=== PATIENT | female | born 1985 | race Caucasian/White ===

== ENCOUNTER 2017-05-29 07:25 | Inpatient (IN) | payer BC ==
[2017-05-29] MEDS ORDERED: SODIUM CHLORIDE 0.9% 1000 ML INFUS.BAG IV ONE ×2 (07:28→12:27)
[2017-05-29] MEDS ORDERED: morphine CARPU-JECT 4 MG/1 ML DISP.SYRIN IVPUSH ONE (07:28)
[2017-05-29] MEDS ORDERED: morphine CARPU-JECT 4 MG/1 ML DISP.SYRIN ONE (07:39)
[2017-05-29 07:44] LABS: URINE APPEARANCE Clear; URINE BILIRUBIN Negative (NEGATIVE); URINE BLOOD Trace-intact (NEGATIVE); URINE COLOR YELLOW; URINE GLUCOSE (UA) Negative (NEGATIVE); URINE KETONE Negative (NEGATIVE); URINE LEUK ESTERASE Negative (NEGATIVE); URINE NITRITE Negative (NEGATIVE); URINE PROTEIN Negative (NEGATIVE); URINE UROBILINOGEN 0.2 (0.2-1.0)
[2017-05-29 07:45] LABS: URINE BACTERIA FEW /hpf (NEGATIVE); URINE RBC 0-3 /hpf (0-3); URINE WBC 0-3 (3-5)
--- NOTE | 2017-05-29 07:52 | PDOC ---
History of Present Illness - General Chief Complaint: Pain Stated Complaint: RUQ ABD PAIN History Source: Patient Exam Limitations: No Limitations - History of Present Illness Initial Comments: 05/29/17 07:49 32 yo F with no significant medical history here with c/o right sided abd pain. started at 1 am. sharp colicky severe like " labor pains" does have nausea with pain, no vomiting. no f/c no urinary complaints. not LMP 1 week ago. pain worse with lying flat and walking, better wtih sitting hunched over. Past History - Past Medical History Allergies/Adverse Reactions: Allergies Allergy/AdvReac Type Severity Reaction Status Date / Time No Known Allergies Allergy Verified 05/29/17 07:26 Home Medications: Ambulatory Orders Bismuth Subsalicylate [Pepto-Bismol -] 60 ml PO ONCE PRN 05/29/17 Citalopram Hydrobromide [Celexa -] 30 mg PO DAILY 05/29/17 Clonazepam [KlonoPIN] 0.5 mg PO PRN PRN 05/29/17 GI Disorders: Yes (ULCERS) Psychiatric Problems: Yes (ANXIETY) - Surgical History Abdominal Surgery: Yes (GASTRIC BYPASS) - Reproductive History Is Patient Now?: (DENIES) - Suicide/Smoking/Psychosocial Hx Smoking History: Never smoked Have you smoked in the past 12 months: No Information on smoking cessation initiated: No Hx Alcohol Use: No Drug/Substance Use Hx: No Substance Use Type: None Review of Systems - Review of Systems Constitutional: No: Chills, Diaphoresis Respiratory: No: Cough Cardiac (ROS): No: Chest Pain ABD/GI: Yes: Nausea, Other (abd pain). No: Diarrhea, Vomiting : No: Burning, Dysuria Musculoskeletal: No: Back Pain Integumentary: No: Bruising All Other Systems: Reviewed and Negative *Physical Exam - Vital Signs Last Vital Signs Temp Pulse Resp BP Pulse Ox 99.1 F 105 H 20 132/59 100 05/29/17 07:05/29/17 07:05/29/17 07:05/29/17 07:05/29/17 07:26 - Physical Exam General Appearance: Yes: Appropriately Dressed HEENT: positive: Normal ENT Inspection Neck: positive: Trachea midline. negative: Normal Thyroid Respiratory/Chest: positive: Lungs Clear, Normal Breath Sounds. negative: Chest Tender Cardiovascular: positive: Regular Rhythm, Regular Rate, S1, S2. negative: Edema Gastrointestinal/Abdominal: positive: Normal Bowel Sounds, Tender (ruq , right mid quad ttp, positive guarding), Flat, Soft Musculoskeletal: positive: Normal Inspection. negative: CVA Tenderness Extremity: positive: Normal Capillary Refill, Normal Inspection Integumentary: positive: Normal Color, Dry, Warm Neurologic: positive: account executive key accounts II-XII NML intact, Fully Oriented, Alert, Normal Mood/ Affect, Motor Strength 01/04 ED Treatment Course - LABORATORY CBC & Chemistry Diagram: 05/29/17 07:48 05/29/17 07:48 - ADDITIONAL ORDERS Additional order review: Laboratory Results 05/29/17 07:27 Urine Color Yellow Urine Appearance Clear Urine pH 7.0 Ur Specific [place] 1.020 Urine Protein Negative Urine Glucose (UA) Negative Urine Ketones Negative Urine Blood Trace-intact H Urine Nitrite Negative Urine Bilirubin Negative Urine Urobilinogen 0.2 Urine RBC 0-3 Urine WBC 0-3 Ur Epithelial Cells Few Urine Bacteria Few Urine HCG, Qual Negative - RADIOLOGY Radiology Studies Ordered: Category Date Time Status ABDOMEN US -LIMITED [US] Stat Ultrasound 05/29/17 07:31 Ordered Medical Decision Making - Medical Decision Making 05/29/17 07:51 differential: cholelithiaisis, renal colic, free fluid from ruptured ov cyst , appy. plan us gb, if negative ct a/p ua ucg labs pain control 05/29/17 08:32 bedside ultrasound performed RUQ, no stones, no wall thickening or edema. neg mccain's. CBD normal 3 mm. impression: normal gb focused renal ultrasound bilat kidneys, for flank pain bilat kidneys scanned in two planes. no hydroneprhosis. bladder nondistended. impression: normal renal ultrasound 05/29/17 11:[address] a/p with partial sbo, will page [facility]. pagd. awaiting call back *DC/Admit/Observation/Transfer Diagnosis at time of Disposition: Partial small bowel obstruction - Discharge Dispostion Admit: Yes
[2017-05-29] MEDS ORDERED: ONDANSETRON 4 MG/2 ML VIAL ONE ×2 (07:56→13:10)
[2017-05-29 07:57] LABS: MCHC 30.3 g/dl (32.0-36.0); MEAN CELL VOLUME 66.1 fl (80-96); MEAN PLT VOLUME 8.5 fl (7.5-11.1); PLATELET COUNT 393 K/MM3 (134-434); RDW 16.8 % (11.6-15.6); WHITE BLOOD COUNT 10.1 K/mm3 (4.0-10.8)
[2017-05-29] MEDS ORDERED: HYDROmorphone HCL CARPU-JECT 1 MG/1 ML DISP.SYRIN ONE ×2 (07:57→10:31)
[2017-05-29] MEDS ORDERED: HYDROmorphone HCL CARPU-JECT 1 MG/1 ML DISP.SYRIN IVPUSH ONE ×2 (08:00→10:17)
[2017-05-29] MEDS ORDERED: ONDANSETRON 4 MG/2 ML VIAL IVPUSH ONE ×2 (08:01→13:13)
[2017-05-29 08:16] LABS: ANISOCYTOSIS 1+; HYPOCHROMIA 2+; MICROCYTOSIS 2+; PLATELET ESTIMATE ADEQUATE (NORMAL)
[2017-05-29 08:25] LABS: ALBUMIN 4.1 g/dl (3.5-5.0); ALK PHOS 46 U/L (32-92); ANION GAP 5 (8-16); BILIRUBIN,TOTAL 0.8 mg/dl (0.2-1.0); CALCIUM 9.1 mg/dl (8.4-10.2); CO2 24 mmol/L (22-28); CREATININE 0.6 mg/dl (0.6-1.3); GLUCOSE,RANDOM 89 mg/dl (74-106); SGOT/AST 21 U/L (10-42); SGPT/ALT 18 U/L (10-40); TOT PROT 7.9 g/dl (6.4-8.3)
[2017-05-29] MEDS ORDERED: SODIUM CHLORIDE 1,000 ML IV SCH (12:15)
--- NOTE | 2017-05-29 13:11 | HP ---
CHIEF COMPLAINT: abdominal pain PCP: Dr Greer HISTORY OF PRESENT ILLNESS: Patient is a 32 y/o female with a past medical history of iron deficiency anemic, peptic ulcer disease, and gastric bypass (12 years ago). Patient reports at 0100 on this date, she awoke with severe abdominal pain, nausea and vomiting. Patient reports she has experienced similar abdominal pain in the past and symptoms resolved spontenously without any intervention. patient does reports she was admitted to [facility] on 03/18 for severe anemia and received 2 units of prbc. ER course was notable for: (1) ct scan of abd/pelvis: finding consistent with partial sbo (2) hemoglobin 10.1 (3) Recent Travel: none PAST MEDICAL HISTORY: iron deficency anemia, peptic ulcer disease PAST SURGICAL HISTORY: gastric bypass (12 years ago, Dr Quijano) Social History: employed as an OR tech in nursing school, resides at home with and 4 year old child Smoking:none Alcohol:none Drugs: none Family History: none Allergies No Known Allergies Allergy (Verified 05/29/17 07:26) HOME MEDICATIONS: Home Medications Medication Instructions Recorded Bismuth Subsalicylate 60 ml PO ONCE PRN 05/29/17 [Pepto-Bismol -] Citalopram Hydrobromide [Celexa -] 30 mg PO DAILY 05/29/17 Clonazepam [KlonoPIN] 0.5 mg PO PRN PRN 05/29/17 REVIEW OF SYSTEMS CONSTITUTIONAL: Absent: fever, chills, diaphoresis, generalized weakness, malaise, loss of appetite, weight change HEENT: Absent: rhinorrhea, nasal congestion, throat pain, throat swelling, difficulty swallowing, mouth swelling, ear pain, eye pain, visual changes CARDIOVASCULAR: Absent: chest pain, syncope, palpitations, irregular heart rate, lightheadedness , peripheral edema RESPIRATORY: Absent: cough, shortness of breath, dyspnea with exertion, orthopnea, wheezing, stridor, hemoptysis GASTROINTESTINAL: Present: abdominal pain nausea, vomiting Absent: abdominal distension,g, diarrhea, constipation, melena, hematochezia GENITOURINARY: Absent: dysuria, frequency, urgency, hesitancy, hematuria, flank pain, genital pain MUSCULOSKELETAL: Absent: myalgia, arthralgia, joint swelling, back pain, neck pain SKIN: Absent: rash, itching, pallor HEMATOLOGIC/IMMUNOLOGIC: Absent: easy bleeding, easy bruising, lymphadenopathy, frequent infections ENDOCRINE: Absent: unexplained weight gain, unexplained weight loss, heat intolerance, cold intolerance NEUROLOGIC: Absent: headache, focal weakness or paresthesias, dizziness, unsteady gait, seizure, mental status changes, bladder or bowel incontinence PSYCHIATRIC: Absent: anxiety, depression, suicidal or homicidal ideation, hallucinations. PHYSICAL EXAMINATION Vital Signs - 24 hr 05/29/17 05/29/17 05/29/17 07:26 07:52 12:17 Temperature 99.1 F 97.8 F Pulse Rate 105 H Pulse Rate [ 65 Left] Respiratory 20 17 Rate Blood Pressure 132/59 132/59 Blood Pressure 92/43 [Right Arm] O2 Sat by Pulse 100 97 Oximetry (%) 05/29/17 12:54 Temperature Pulse Rate Pulse Rate [ 70 Left] Respiratory 17 Rate Blood Pressure Blood Pressure 103/55 [Right Arm] O2 Sat by Pulse 98 Oximetry (%) GENERAL: obese, Awake, alert, and fully oriented, anxious. HEAD: Normal with no signs of trauma. EYES: Pupils equal, round and reactive to light, extraocular movements intact, sclera anicteric, conjunctiva clear. No lid lag. EARS, NOSE, THROAT: Ears normal, nares patent, oropharynx clear without exudates. Moist mucous membranes. NECK: Normal range of motion, supple without lymphadenopathy, JVD, or masses. LUNGS: Breath sounds equal, clear to auscultation bilaterally. No wheezes, and no crackles. No accessory muscle use. HEART: Regular rate and rhythm, normal S1 and S2 without murmur, rub or gallop. ABDOMEN: Soft, obese, not distended, surgical scars, hypoactive bowel sounds, no guarding, + tenderness to the right upper quadrant, no masses. No hepatomegaly or splenomegaly. MUSCULOSKELETAL: Normal range of motion at all joints. No bony deformities or tenderness. No CVA tenderness. UPPER EXTREMITIES: 2+ pulses, warm, well-perfused. No cyanosis. No clubbing. No peripheral edema. LOWER EXTREMITIES: 2+ pulses, warm, well-perfused. No calf tenderness. No peripheral edema. NEUROLOGICAL: Cranial nerves II-XII intact. Normal speech. Normal gait. PSYCHIATRIC: Cooperative. Good eye contact. Appropriate mood and affect. SKIN: Warm, dry, normal turgor, no rashes or lesions noted, normal capillary refill. Laboratory Results - last 24 hr 05/29/17 05/29/17 05/29/17 07:27 07:48 07:48 WBC 10.1 RBC 5.03 Hgb 10.1 L Hct 33.2 MCV 66.1 L MCH 20.0 L MCHC 30.3 L RDW 16.8 H Plt Count 393 MPV 8.5 Neutrophils % No Result Required. Neutrophils % (Manual) 80 Band Neuts % (Manual) 3 Lymphocytes % No Result Required. Lymphocytes % (Manual) 12 Monocytes % (Manual) 5 Hypochromia 2+ Platelet Estimate Adequate Anisocytosis 1+ Microcytosis 2+ Sodium 135 L Potassium 4.3 Chloride 106 Carbon Dioxide 24 Anion Gap 5 L BUN 17 Creatinine 0.6 Creat Clearance w eGFR > 60 Random Glucose 89 Calcium 9.1 Total Bilirubin 0.8 AST 21 ALT 18 Alkaline Phosphatase 46 Total Protein 7.9 Albumin 4.1 Lipase 43 Urine Color Yellow Urine Appearance Clear Urine pH 7.0 Ur Specific [place] 1.020 Urine Protein Negative Urine Glucose (UA) Negative Urine Ketones Negative Urine Blood Trace-intact H Urine Nitrite Negative Urine Bilirubin Negative Urine Urobilinogen 0.2 Urine RBC 0-3 Urine WBC 0-3 Ur Epithelial Cells Few Urine Bacteria Few Urine HCG, Qual Negative ASSESSMENT/PLAN: F/E/N - IVF, npo - replete lytes prn ppx - oob - scd - protonix - hold ac may require surgical intervention Problem List - Problem (1) Partial small bowel obstruction Assessment/Plan: - ct scan reviewed, keep npo ivf - prn pain medication - Code(s): K56.69 - OTHER INTESTINAL OBSTRUCTION (2) Microcytic anemia Assessment/Plan: - hgb 10.1 unknown baseline, anemia secondary to malabsorbtion vs peptic ulcer disease - repeat hgb in am, pending iron studies and stool guiac, pt does have a history of venofer infusion, was last evaluated by a associate professor computer science last year, last venofer was 3 years ago, patient doesn't take iron supplements Code(s): D50.9 - IRON DEFICIENCY ANEMIA, UNSPECIFIED (3) Depression with anxiety Assessment/Plan: - continue prn klonopin and celexa (home dose) Code(s): F41.8 - OTHER SPECIFIED ANXIETY DISORDERS Visit type - Emergency Visit Emergency Visit: Yes Care time: The patient presented to the Emergency Department on the above date and was hospitalized for further evaluation of their emergent condition. - New Patient This patient is new to me today: Yes Date on this admission: 05/29/17 - Critical Care Critical Care patient: No
[2017-05-29] MEDS ORDERED: clonazePAM 0.5 MG TABLET PO PRN ×2 (13:31→14:01)
[2017-05-29] MEDS ORDERED: D5-NS + 20 MEQ KCL - 1,000 ML IV SCH (13:45)
[2017-05-29] MEDS: PANTOPRAZOLE SODIUM 100 ML IVPB SCH (14:50)
[2017-05-29] MEDS: HYDROmorphone HCL CARPU-JECT 1 MG/1 ML DISP.SYRIN IVPB PRN (16:00)
[2017-05-29 16:54] VITALS: BMI 32.4
[2017-05-29] MEDS ORDERED: FLU VACCINE QUAD 60 MCG/0.5 ML (MDV 17-18) IM ONE (17:22)
--- NOTE | 2017-05-29 19:52 | CONSULT ---
Consult Consult Specialty:: Bariatric Surgery Reason for Consultation:: Bowel obstruction - History of Present Illness Chief Complaint: Abdominal pain History of Present Illness: 32 female s/p [place] en Y Gastric Bypass Presents with abdominal pain Mostly in RLQ No nausea/vomiting No fevers Pain x 1-2 days - History Source History Provided By: Patient, Medical Record Limitations to Obtaining History: No Limitations - Past Medical History ...LMP: 05/25/17 ...: No (DENIES) - Past Surgical History Past Surgical History: Yes: Bariatric Surgery (Gastric Bypass) - Alcohol/Substance Use Hx Alcohol Use: No - Smoking History Smoking history: Never smoked Have you smoked in the past 12 months: No Home Medications - Allergies Allergies/Adverse Reactions: Allergies Allergy/AdvReac Type Severity Reaction Status Date / Time No Known Allergies Allergy Verified 05/29/17 07:26 - Home Medications Home Medications: Ambulatory Orders Bismuth Subsalicylate [Pepto-Bismol -] 60 ml PO ONCE PRN 05/29/17 Citalopram Hydrobromide [Celexa -] 30 mg PO DAILY 05/29/17 Clonazepam [KlonoPIN] 0.5 mg PO PRN PRN 05/29/17 Family Disease History - Family Disease History Family History: Unremarkable Review of Systems - Review of Systems Constitutional: denies: Chills, Fever HENT: reports: No Symptoms Neck: reports: No Symptoms Cardiovascular: denies: Chest Pain Respiratory: denies: Cough Gastrointestinal: reports: Abdominal Pain. denies: Nausea, Vomiting Neurological: denies: Change in LOC Pain Intensity: 4 Physical Exam Vital Signs: Vital Signs Temperature 97.9 F 05/29/17 15:47 Pulse Rate 62 05/29/17 15:47 Respiratory Rate 18 05/29/17 15:47 Blood Pressure 107/59 05/29/17 15:47 O2 Sat by Pulse Oximetry (%) 100 05/29/17 15:47 Constitutional: Yes: Calm Neck: Yes: Supple Cardiovascular: Yes: Regular Rate and Rhythm Respiratory: Yes: CTA Bilaterally Gastrointestinal: Yes: Soft, Tenderness (Mild RLQ tenderness). No: Tenderness, Rebound Neurological: Yes: Alert, Oriented Labs: CBC,CMP WBC 10.1 K/mm3 (4.0-10.8) 05/29/17 07:48 RBC 5.03 M/mm3 (3.60-5.2) 05/29/17 07:48 Hgb 10.1 GM/dl (10.7-15.3) L 05/29/17 07:48 Hct 33.2 % (32.4-45.2) 05/29/17 07:48 MCV 66.1 fl (80-96) L 05/29/17 07:48 MCH 20.0 pg (25.7-33.7) L 05/29/17 07:48 MCHC 30.3 g/dl (32.0-36.0) L 05/29/17 07:48 RDW 16.8 % (11.6-15.6) H 05/29/17 07:48 Plt Count 393 K/MM3 (134-434) 05/29/17 07:48 MPV 8.5 fl (7.5-11.1) 05/29/17 07:48 Neutrophils % No Result Required. 05/29/17 07:48 Neutrophils % (Manual) 80 % (42.8-82.8) 05/29/17 07:48 Band Neuts % (Manual) 3 % (0-10) 05/29/17 07:48 Lymphocytes % No Result Required. 05/29/17 07:48 Lymphocytes % (Manual) 12 % (8-40) 05/29/17 07:48 Monocytes % (Manual) 5 % (3.8-10.2) 05/29/17 07:48 Hypochromia 2+ 05/29/17 07:48 Platelet Estimate Adequate (NORMAL) 05/29/17 07:48 Anisocytosis 1+ 05/29/17 07:48 Microcytosis 2+ 05/29/17 07:48 Retic Count 1.38 % (0.5-1.5) 05/29/17 15:26 Sodium 135 mmol/L (136-145) L 05/29/17 07:48 Potassium 4.3 mmol/L (3.5-5.1) 05/29/17 07:48 Chloride 106 mmol/L (98-107) 05/29/17 07:48 Carbon Dioxide 24 mmol/L (22-28) 05/29/17 07:48 Anion Gap 5 (8-16) L 05/29/17 07:48 BUN 17 mg/dl (7-18) 05/29/17 07:48 Creatinine 0.6 mg/dl (0.6-1.3) 05/29/17 07:48 Creat Clearance w eGFR > 60 (>60) 05/29/17 07:48 Random Glucose 89 mg/dl (74-106) 05/29/17 07:48 Calcium 9.1 mg/dl (8.4-10.2) 05/29/17 07:48 Ferritin 2.685 ng/ml (6.9-282.5) L 05/29/17 15:20 Total Bilirubin 0.8 mg/dl (0.2-1.0) 05/29/17 07:48 AST 21 U/L (10-42) 05/29/17 07:48 ALT 18 U/L (10-40) 05/29/17 07:48 Alkaline Phosphatase 46 U/L (32-92) 05/29/17 07:48 Total Protein 7.9 g/dl (6.4-8.3) 05/29/17 07:48 Albumin 4.1 g/dl (3.5-5.0) 05/29/17 07:48 Lipase 43 U/L (22-51) 05/29/17 07:48 Imaging - Results Cat Scan: Report Reviewed, Image Reviewed Problem List - Problems (1) Partial small bowel obstruction Code(s): K56.69 - OTHER INTESTINAL OBSTRUCTION Assessment/Plan 32 female with partial small bowel obstruction Thickening near ileum on CT NPO IV fluids NG tube if develops worsening pain, distention or vomiting Serial abdominal exams and AXRs
[2017-05-30] MEDS: HYDROmorphone HCL CARPU-JECT 1 MG/1 ML DISP.SYRIN IVPB PRN ×3 (02:15→19:53)
[2017-05-30 08:07] LABS: SERUM IRON 17 ug/dL (27-159); TOTAL IRON BINDING CAPACITY 493 ug/dL (250-450); UIBC 476 ug/dL (131-425)
[2017-05-30] MEDS: ONDANSETRON 4 MG/2 ML VIAL IVPUSH PRN ×2 (08:08→18:12)
[2017-05-30 08:39] LABS: BASOPHIL 0.5 % (0-2.0); EOSINOPHIL 1.6 % (0-4.5); MCH 20.2 pg (25.7-33.7); MCHC 30.4 g/dl (32.0-36.0); MEAN CELL VOLUME 66.4 fl (80-96); MEAN PLT VOLUME 8.5 fl (7.5-11.1); NEUTROPHILS 59.8 % (42.8-82.8); PLATELET COUNT 260 K/MM3 (134-434); RDW 16.9 % (11.6-15.6); WHITE BLOOD COUNT 4.1 K/mm3 (4.0-10.8)
[2017-05-30 08:50] LABS: ALK PHOS 35 U/L (32-92); ANION GAP 3 (8-16); BILIRUBIN,TOTAL 0.5 mg/dl (0.2-1.0); CALCIUM 7.8 mg/dl (8.4-10.2); CO2 25 mmol/L (22-28); CREATININE 0.5 mg/dl (0.6-1.3); GLUCOSE,RANDOM 100 mg/dl (74-106); MAGNESIUM 1.7 mg/dL (1.8-2.4); PHOSPHOROUS 2.7 mg/dl (2.5-4.6); SGOT/AST 15 U/L (10-42); SGPT/ALT 13 U/L (10-40); TOT PROT 5.6 g/dl (6.4-8.3)
[2017-05-30] MEDS: PANTOPRAZOLE SODIUM 100 ML IVPB SCH (09:52)
[2017-05-30] MEDS: CITALOPRAM HYDROBROMIDE 20 MG TABLET (FP) PO SCH (09:52)
--- NOTE | 2017-05-30 10:14 | PN ---
Physical Exam: SUBJECTIVE: Patient seen and examined, reports abdominal cramping, denies any nausea. OBJECTIVE:Patient is a 32 y/o female with a past medical history of iron deficiency anemic, peptic ulcer disease, and gastric bypass (12 years ago). patient was admitted from the emergency department for partial sbo Vital Signs Period Temp Pulse Resp BP Sys/Reyna Pulse Ox Last 24 Hr 97.9 F-98.8 F 60-74 17-19 96-109/42-59 97-100 GENERAL: The patient is awake, alert, and fully oriented, in no acute distress. HEAD: Normal with no signs of trauma. EYES: PERRL, extraocular movements intact, sclera anicteric, conjunctiva clear. No ptosis. ENT: Ears normal, nares patent, oropharynx clear without exudates, moist mucous membranes. NECK: Trachea midline, full range of motion, supple. LUNGS: Breath sounds equal, clear to auscultation bilaterally, no wheezes, no crackles, no accessory muscle use. HEART: Regular rate and rhythm, S1, S2 without murmur, rub or gallop. ABDOMEN: Soft, nontender, nondistended, normoactive bowel sounds, no guarding, no rebound, no hepatosplenomegaly, no masses. EXTREMITIES: 2+ pulses, warm, well-perfused, no edema. NEUROLOGICAL: Cranial nerves II through XII grossly intact. Normal speech, gait not observed. PSYCH: Normal mood, normal affect. SKIN: Warm, dry, normal turgor, no rashes or lesions noted Laboratory Results - last 24 hr 05/29/17 05/29/17 05/29/17 15:20 15:20 15:20 WBC RBC Hgb Hct MCV MCH MCHC RDW Plt Count MPV Neutrophils % Lymphocytes % Monocytes % Eosinophils % Basophils % Retic Count Sodium Potassium Chloride Carbon Dioxide Anion Gap BUN Creatinine Creat Clearance w eGFR Random Glucose Calcium Phosphorus Magnesium Iron 17 L TIBC 493 H Iron Saturation 3 L Ferritin 2.685 L Total Bilirubin AST ALT Alkaline Phosphatase Total Protein Albumin Blood Type A POSITIVE Antibody Screen Negative 05/29/17 05/29/17 05/30/17 15:26 16:10 07:00 WBC 4.1 D RBC 3.79 D Hgb 7.7 L D Hct 25.2 L D MCV 66.4 L MCH 20.2 L MCHC 30.4 L RDW 16.9 H Plt Count 260 D MPV 8.5 Neutrophils % 59.8 Lymphocytes % 27.8 Monocytes % 10.3 H Eosinophils % 1.6 Basophils % 0.5 Retic Count 1.38 Sodium Potassium Chloride Carbon Dioxide Anion Gap BUN Creatinine Creat Clearance w eGFR Random Glucose Calcium Phosphorus Magnesium Iron TIBC Iron Saturation Ferritin Total Bilirubin AST ALT Alkaline Phosphatase Total Protein Albumin Blood Type A POSITIVE Antibody Screen 05/30/17 07:00 WBC RBC Hgb Hct MCV MCH MCHC RDW Plt Count MPV Neutrophils % Lymphocytes % Monocytes % Eosinophils % Basophils % Retic Count Sodium 138 Potassium 4.0 Chloride 110 H Carbon Dioxide 25 Anion Gap 3 L BUN 6 L D Creatinine 0.5 L Creat Clearance w eGFR > 60 Random Glucose 100 Calcium 7.8 L Phosphorus 2.7 Magnesium 1.7 L Iron TIBC Iron Saturation Ferritin Total Bilirubin 0.5 D AST 15 D ALT 13 D Alkaline Phosphatase 35 D Total Protein 5.6 L D Albumin 3.0 L D Blood Type Antibody Screen Active Medications Generic Name Dose Route Start Last Admin Trade Name Freq PRN Reason Stop Dose Admin Citalopram Hydrobromide 30 mg 05/30/17 10:00 05/30/17 09:52 Celexa - PO 30 mg DAILY ILEANA Administration Clonazepam 0.5 mg 05/29/17 14:01 Klonopin - PO DAILY PRN ANXIETY Hydromorphone HCl 1 mg 05/29/17 13:33 05/30/17 09:52 Dilaudid Injection - IVPB 1 mg Q6H PRN Administration PAIN Pantoprazole Sodium 100 mls @ 200 mls/hr 05/29/17 13:45 05/30/17 09:52 Protonix 40mg Ivpb (Pre-Docked) IVPB 200 mls/hr DAILY ILEANA Administration Dextrose/Sodium Chloride 1,000 mls @ 100 mls/hr 05/29/17 13:45 05/29/17 16:08 Dextrose 5%-Normal Saline+20 Meq Kcl - IV 100 mls/hr ASDIR ILEANA Administration Ondansetron HCl 4 mg 05/29/17 14:16 05/30/17 08:08 Zofran Injection IVPUSH 4 mg TID PRN Administration NAUSEA IMAGING ct scan of abd/pelvis: finding consistent with partial sbo ASSESSMENT/PLAN: dispo: 1) partial sbo - repeat ct scan of abd, no free air or sbo noted - start clear liquid and advance as tolerated - Dr Bruno, surgery, consulted and followed 2) heme microcytic anemia - hgb 7.7, iron studies notable for iron deficency anemia - start venofer infusion, case discussed with Dr Greer, pumping station engineer, agree with plan, advises outpatient follow up with hematology - patient will require venofer x 4, for a total of 5 doses, will require outpatient venofer infusion - pending stool guiac 3) psych depression w/anxiety - continue prn klonopin and home dose celexa F/E/N - clear liquid diet - replete lytes prn ppx - oob - scd - protonix - hold ac may require surgical intervention requires inpatient admission Problem List - Problems (1) Partial small bowel obstruction Code(s): K56.69 - OTHER INTESTINAL OBSTRUCTION (2) Microcytic anemia Code(s): D50.9 - IRON DEFICIENCY ANEMIA, UNSPECIFIED (3) Depression with anxiety Code(s): F41.8 - OTHER SPECIFIED ANXIETY DISORDERS Visit type - Emergency Visit Emergency Visit: Yes ED Registration Date: 05/29/17 Care time: The patient presented to the Emergency Department on the above date and was hospitalized for further evaluation of their emergent condition. - New Patient This patient is new to me today: No - Critical Care Critical Care patient: No - Discharge Referral Referred to [facility] Med P.C.: No
[2017-05-30] MEDS ORDERED: MAGNESIUM SULFATE 2 GM in SODIUM CHLORIDE 100 ML IVPB ONE (10:15)
[2017-05-30] MEDS ORDERED: MAGNESIUM SULF 50% (8.12 MEQ/2 ML-1 GM VIAL) IVPB ONE (10:45)
[2017-05-30] MEDS ORDERED: D5-NS + 20 MEQ KCL - 1,000 ML IV SCH (11:21)
[2017-05-30] MEDS ORDERED: IRON SUCROSE INJECTION 200 MG in SODIUM CHLORIDE 100 ML IVPB ONE (13:00)
[2017-05-30] MEDS ORDERED: ACETAMINOPHEN 1000 MG/100 ML VIAL (NON FORMULARY) IVPB ONE (13:00)
--- NOTE | 2017-05-30 17:11 | PN ---
Progress Note (short form) - Note Progress Note: No acute complaints No BM Pain improved Repeat CT- contrast in sigmoid colon Tolerating clears Vital Signs Period Temp Pulse Resp BP Sys/Reyna Pulse Ox Last 24 Hr 98.2 F-98.8 F 60-77 17-19 96-109/42-56 97-100 Abd soft, NT CBC, BMP 05/30/17 07:00 05/30/17 07:00 Diet as tolerated Transfuse PRN for low hemoglobin Problem List - Problems (1) Partial small bowel obstruction Code(s): K56.69 - OTHER INTESTINAL OBSTRUCTION
[2017-05-31] MEDS ORDERED: ACETAMINOPHEN 325 MG TABLET (FP) PO PRN (01:48)
[2017-05-31 05:51] VITALS: BP 105/44; PULSE 73; TEMP 98.6
[2017-05-31] MEDS ORDERED: ACETAMINOPHEN/CAFFEINE/BUTALBITAL 1 TAB PO PRN (08:21)
[2017-05-31 08:24] LABS: ALBUMIN 3.2 g/dl (3.5-5.0); ALK PHOS 36 U/L (32-92); ANION GAP 1 (8-16); BILIRUBIN,TOTAL 0.5 mg/dl (0.2-1.0); CALCIUM 8.1 mg/dl (8.4-10.2); CO2 28 mmol/L (22-28); GLUCOSE,RANDOM 95 mg/dl (74-106); PHOSPHOROUS 2.9 mg/dl (2.5-4.6); SGOT/AST 16 U/L (10-42); SGPT/ALT 13 U/L (10-40); TOT PROT 5.9 g/dl (6.4-8.3)
[2017-05-31 08:30] LABS: BASOPHIL 0.4 % (0-2.0); MCHC 30.3 g/dl (32.0-36.0); MEAN PLT VOLUME 8.3 fl (7.5-11.1); NEUTROPHILS 67.1 % (42.8-82.8); PLATELET COUNT 286 K/MM3 (134-434); WHITE BLOOD COUNT 5.7 K/mm3 (4.0-10.8)
[2017-05-31] MEDS: CITALOPRAM HYDROBROMIDE 20 MG TABLET (FP) PO SCH (09:46)
[2017-05-31] MEDS: PANTOPRAZOLE SODIUM 100 ML IVPB SCH (09:46)
[2017-05-31 10:16] LABS: CREATININE 0.7 mg/dl (0.6-1.3)
--- NOTE | 2017-05-31 11:28 | PN ---
Progress Note (short form) - Note Progress Note: Pt states that she had a little nausea, but is tolerating fulls this am. Passing gas and had a bowel movement(blackish). She is recevived IV iron. No abd pain. Vital Signs Period Temp Pulse Resp BP Sys/Reyna Pulse Ox Last 24 Hr 98 F-98.6 F 60-86 18-18 97-110/44-56 94-98 GEN: appears comfortable ABD: soft, non-distended, non-tender CBC, BMP 05/31/17 07:40 05/31/17 07:40 A/P: 32 yo female with partial SBO-resolving Advance diet as tolerated, D/w Dr. Bruno no acute surgical issues. Plan as per the medical team for the treatment of her H&H. <Ariadna Tirado - Last Filed: 05/31/17 11:28> - Note Progress Note: Agree Tolerating diet No surgical intervention needed at this time <Attila Bruno - Last Filed: 05/31/17 16:00> Problem List - Problems (1) Partial small bowel obstruction Code(s): K56.69 - OTHER INTESTINAL OBSTRUCTION <Attila Bruno - Last Filed: 05/31/17 16:00>
--- NOTE | 2017-05-31 11:39 | DS ---
Physical Exam: SUBJECTIVE: Patient seen and examined, feeling much better, denies any abdominal pain, sitting in bed studying for upcoming exam, tolerating soft diet. OBJECTIVE:Patient is a 32 y/o female with a past medical history of iron deficiency anemic, peptic ulcer disease, and gastric bypass (12 years ago). Patient reports at 0100 on this date, she awoke with severe abdominal pain, nausea and vomiting. Patient reports she has experienced similar abdominal pain in the past and symptoms resolved spontenously without any intervention. patient does reports she was admitted to [facility] on 03/18 for severe anemia and received 2 units of prbc. ER course was notable for: (1) ct scan of abd/pelvis: finding consistent with partial sbo (2) hemoglobin 10.1 Vital Signs Period Temp Pulse Resp BP Sys/Reyna Pulse Ox Last 24 Hr 98 F-98.6 F 60-86 18-18 97-110/44-56 94-98 PHYSICAL EXAM GENERAL: The patient is awake, alert, and fully oriented, in no acute distress. HEAD: Normal with no signs of trauma. EYES: PERRL, extraocular movements intact, sclera anicteric, conjunctiva clear. ENT: Ears normal, nares patent, oropharynx clear without exudates, moist mucous membranes. NECK: Trachea midline, full range of motion, supple. LUNGS: Breath sounds equal, clear to auscultation bilaterally, no wheezes, no crackles, no accessory muscle use. HEART: Regular rate and rhythm, S1, S2 without murmur, rub or gallop. ABDOMEN: Soft, nontender, nondistended, normoactive bowel sounds, no guarding, no rebound, no hepatosplenomegaly, no masses. EXTREMITIES: 2+ pulses, warm, well-perfused, no edema. NEUROLOGICAL: Cranial nerves II through XII grossly intact. Normal speech, gait not observed. PSYCH: Normal mood, normal affect. SKIN: Warm, dry, normal turgor, no rashes or lesions noted. LABS Laboratory Results - last 24 hr 05/31/17 05/31/17 07:40 07:40 WBC 5.7 D RBC 4.03 Hgb 8.1 L Hct 26.6 L MCV 66.0 L MCH 20.0 L MCHC 30.3 L RDW 17.0 H Plt Count 286 MPV 8.3 Neutrophils % 67.1 Lymphocytes % 19.8 D Monocytes % 11.7 H Eosinophils % 1.0 Basophils % 0.4 Sodium 137 Potassium 4.4 Chloride 108 H Carbon Dioxide 28 Anion Gap 1 L BUN < 4 L D Creatinine 0.7 D Creat Clearance w eGFR > 60 Random Glucose 95 Calcium 8.1 L Phosphorus 2.9 Magnesium 2.0 Total Bilirubin 0.5 AST 16 ALT 13 Alkaline Phosphatase 36 Total Protein 5.9 L Albumin 3.[address] scan of abd/pelvis: finding consistent with partial sbo ct scan of abd/pelvis (repeat 05/30/17) repeat ct scan of abd, no free air or sbo noted HOSPITAL COURSE: Patient was admitted to the hospital for a partial SBO, on hospital day 1, repeat ct scan confirmed resolution of sbo. Patient was started on clear liquid diet Dr Bruno, surgery, consulted and followed. On hospital day 2, diet was advanced to full then soft, which patient tolerated. She was noted to have microcytic anemia, iron studies notable for iron deficency anemia. Patient was started on venofer infusions. Case discussed with Dr Greer, technology trainer, agree with plan, of outpatient follow up with hematology. Patient will require venofer x 4, for a total of 5 doses, will require outpatient venofer infusion and a infusion schedule was established with ambulatory surgery. Patient has a past medical history of depression w/anxiety. klonopin prn and home dose celexa was continued. Date of Admission:05/29/17 Date of Discharge: 05/31/17 Minutes to complete discharge: 45 Discharge Summary Reason For Visit: PARTIAL SMALL BOWEL OBSTRUCTION Current Active Problems Depression with anxiety (Acute) Microcytic anemia (Acute) Partial small bowel obstruction (Acute) Condition: Improved - Instructions Diet, Activity, Other Instructions: YOU WERE ADMITTED TO THE HOSPITAL FOR A PARTIAL SMALL BOWEL OBSTRUCTION WHICH RESOLVED - CONTINUE SOFT BLAND DIET THEN ADVANCE TOLERATED - YOUR IRON LEVELS WERE LOW AND YOU WERE GIVEN 1 DOSE OF VENOFER ON SATURDAY, YOUR VENOFER INFUSION SCHEDULE - SATURDAY, JUNE 03, 2017 FOR YOUR SECOND VENOFER INFUSION - SATURDAY, JUNE 06, 2017 THIRD INFUSION - SATURDAY, JUNE 10, 2017 FOURTH INFUSION - SATURDAY, JUNE 13, 2017 FIFTH INFUSION PLEASE FOLLOW UP WITH DR GREER (MARKETING SERVICES MANAGER) WITHIN 2 WEEKS PLEASE FOLLOW UP WITH DR PEREZ (GI) WITHIN 3 WEEKS IF ANY NEW OR PERSISTENT SYMPTOMS DEVELOP PLEASE RETURN TO THE EMERGENCY DEPARTMENT Referrals: Attila Bruno MD [Staff Physician] - Gisselle Greer MD [Staff Physician] - 2 Weeks Gavin Perez MD [Staff Physician] - 3 Weeks Disposition: HOME - Home Medications Comprehensive Discharge Medication List: Ambulatory Orders Bismuth Subsalicylate [Pepto-Bismol -] 60 ml PO ONCE PRN 05/29/17 Citalopram Hydrobromide [Celexa -] 30 mg PO DAILY 05/29/17 Clonazepam [KlonoPIN] 0.5 mg PO PRN PRN 05/29/17 Problem List - Problems (1) Partial small bowel obstruction Code(s): K56.69 - OTHER INTESTINAL OBSTRUCTION (2) Microcytic anemia Code(s): D50.9 - IRON DEFICIENCY ANEMIA, UNSPECIFIED (3) Depression with anxiety Code(s): F41.8 - OTHER SPECIFIED ANXIETY DISORDERS This patient is new to me today: No Emergency Visit: Yes ED Registration Date: 05/29/17 Care time: The patient presented to the Emergency Department on the above date and was hospitalized for further evaluation of their emergent condition. Critical Care patient: No - Discharge Referral Referred to [facility] No
[2017-06-01] MEDS ORDERED: PANTOPRAZOLE 40 MG TABLET (FP) PO SCH (10:00)
== END 2017-05-31 14:28 | disposition home or self-care (01) | DRG 390 ==
LOC: FER 07:25 → FM/S 13:55
PROVIDERS: ADMIT Internal Medicine; ATTEND Nurse Practitioner Family
DX: K56.69 Other intestinal obstruction (principal); D50.9 Iron deficiency anemia, unspecified; K27.9 Peptic ulcer, site unspecified, unspecified as acute or chronic, without hemorrhage or perforation; E66.9 Obesity, unspecified; F41.8 Other specified anxiety disorders; Z68.32 Body mass index [BMI] 32.0-32.9, adult
CPT/HCPCS: 36415; 74020-TC; 74176-TC; 74177-TC; 76705-TC; 80053; 81003; 81015; 82728; 83540; 83550; 83690; 83735; 84100; 84703; 85025; 85044; 86850; 86900; 86901; 90688; 99283-25; G0008; J1756

== ENCOUNTER 2017-06-03 12:01 | Day surgery (SDC) | payer BC ==
[2017-06-03 12:53] VITALS: PULSE 63; TEMP 98.2
[2017-06-03] MEDS ORDERED: IRON SUCROSE INJECTION 200 MG in SODIUM CHLORIDE 100 ML IVPB ONE (13:15)
[2017-06-03 13:37] VITALS: BP 108/62
== END 2017-06-03 13:45 | disposition home or self-care (01) ==
LOC: FINFUSION 12:01 → FM/S 12:11 → FINFUSION 13:45
PROVIDERS: ATTEND Nurse Practitioner Family
PROC: 3E033GC Introduction of Other Therapeutic Substance into Peripheral Vein, Percutaneous Approach (ICD-10-PCS; principal; 2017-06-03)
DX: D50.9 Iron deficiency anemia, unspecified (principal)
CPT/HCPCS: 96365; J1756

== ENCOUNTER 2017-06-07 14:08 | Day surgery (SDC) | payer BC ==
[2017-06-07 14:50] VITALS: BP 108/62; PULSE 64; TEMP 98.2
[2017-06-07] MEDS ORDERED: IRON SUCROSE INJECTION 200 MG in SODIUM CHLORIDE 100 ML IVPB ONE (15:00)
== END 2017-06-07 14:23 | disposition home or self-care (01) ==
LOC: FINFUSION 14:08 → FM/S 14:12 → FINFUSION 14:23
PROVIDERS: ATTEND Nurse Practitioner Family
PROC: 3E033GC Introduction of Other Therapeutic Substance into Peripheral Vein, Percutaneous Approach (ICD-10-PCS; principal; 2017-06-07)
DX: D50.9 Iron deficiency anemia, unspecified (principal)
CPT/HCPCS: J1756

== ENCOUNTER 2017-06-10 19:04 | Day surgery (SDC) | payer BC ==
[2017-06-10] MEDS ORDERED: HYDROCORTISONE SOD SUCCINATE 100 MG/2 ML VIAL IVPUSH ONE ×2 (19:30)
[2017-06-10] MEDS ORDERED: diphenhydrAMINE HCL 50 MG CAPSULE PO ONE ×2 (19:30)
[2017-06-10] MEDS ORDERED: IRON SUCROSE INJECTION 200 MG in SODIUM CHLORIDE 100 ML IVPB ONE (19:30)
[2017-06-10 20:12] VITALS: TEMP 98
[2017-06-10 21:36] VITALS: BP 103/58; PULSE 82
== END 2017-06-10 22:00 | disposition home or self-care (01) ==
LOC: FINFUSION 19:04 → FM/S 19:12 → FINFUSION 22:00
PROVIDERS: ATTEND Nurse Practitioner Family
PROC: 3E033GC Introduction of Other Therapeutic Substance into Peripheral Vein, Percutaneous Approach (ICD-10-PCS; principal; 2017-06-10)
DX: D50.9 Iron deficiency anemia, unspecified (principal)
CPT/HCPCS: 96365; J1756

== ENCOUNTER 2017-06-13 17:31 | Day surgery (SDC) | payer BC ==
[2017-06-13] MEDS ORDERED: diphenhydrAMINE HCL 50 MG CAPSULE PO ONE (18:00)
[2017-06-13] MEDS ORDERED: IRON SUCROSE INJECTION 200 MG in SODIUM CHLORIDE 100 ML IVPB ONE (18:00)
[2017-06-13] MEDS ORDERED: HYDROCORTISONE SOD SUCCINATE 100 MG/2 ML VIAL IVPUSH ONE (18:00)
[2017-06-13 18:18] VITALS: BP 116/58; PULSE 83; TEMP 97.6
== END 2017-06-13 18:50 | disposition home or self-care (01) ==
LOC: FINFUSION 17:31 → FM/S 17:33 → FINFUSION 18:50
PROVIDERS: ATTEND Nurse Practitioner Family
PROC: 3E033GC Introduction of Other Therapeutic Substance into Peripheral Vein, Percutaneous Approach (ICD-10-PCS; principal; 2017-06-13)
DX: D50.9 Iron deficiency anemia, unspecified (principal)
CPT/HCPCS: 96365; J1756

== ENCOUNTER 2017-12-25 16:59 | Inpatient (IN) | payer BC ==
[2017-12-25 12:20] VITALS: BMI 38.2
--- NOTE | 2017-12-26 12:27 | HP ---
History & Physical Update - History History: No Change - Physical Physical: No Change - Assessment Assessment: No Change - Plan Plan: No Change (Laparoscopic possible open gastric band placement, possible internal hernia repair)
[2017-12-26] MEDS ORDERED: PROPOFOL 20 ML ONE ×2 (12:31)
[2017-12-26] MEDS ORDERED: fentaNYL CITRATE 250 MCG/5 ML VIAL ONE (12:31)
[2017-12-26] MEDS ORDERED: MIDAZOLAM HCL 2 MG/2 ML SINGLE DOSE VIAL ONE (12:31)
[2017-12-26] MEDS ORDERED: ROCURONIUM BROMIDE 50 MG/5 ML VIAL ONE ×2 (12:31→13:48)
[2017-12-26] MEDS ORDERED: ceFAZolin SODIUM 1 GM VIAL ONE (12:41)
[2017-12-26] MEDS ORDERED: ceFAZolin SODIUM 1 GM VIAL IVPB ONE (12:54)
[2017-12-26] MEDS ORDERED: DEXAMETHASONE SOD PHOSPHATE 4 MG/1 ML VIAL ONE (12:59)
[2017-12-26] MEDS ORDERED: NEOSTIGMINE METHYLSULFATE 0.5 MG/ML - 10 ML MDV ONE (13:12)
[2017-12-26] MEDS ORDERED: BUPIVACAINE HCL/PF 0.5% (5MG/ML) 10 ML VIAL IJ ONE (13:24)
[2017-12-26] MEDS ORDERED: BUPIVACAINE HCL/PF 0.5% (5MG/ML) 10 ML VIAL ONE (13:31)
[2017-12-26] MEDS ORDERED: GLYCOPYRROLATE 0.2 MG/1 ML VIAL ONE (13:48)
--- NOTE | 2017-12-26 14:55 | HP ---
Admitting History and Physical - Admission Chief Complaint: Morbid obesity History Source: Patient Limitations to Obtaining History: No Limitations - Past Medical History ...LMP: 12/05/17 ...: No - Past Surgical History Past Surgical History: Yes: Bariatric Surgery (Gastric Bypass) - Smoking History Smoking history: Never smoked Have you smoked in the past 12 months: No - Alcohol/Substance Use Hx Alcohol Use: No Home Medications - Allergies Allergies/Adverse Reactions: Allergies Allergy/AdvReac Type Severity Reaction Status Date / Time No Known Allergies Allergy Verified 12/26/17 11:02 - Home Medications Home Medications: Ambulatory Orders Citalopram Hydrobromide [Celexa -] 30 mg PO DAILY 05/29/17 clonazePAM [KlonoPIN] 0.5 mg PO PRN PRN 05/29/17 Pantoprazole Sodium [Protonix -] 40 mg PO DAILY #30 tab 05/31/17 Etanercept [Enbrel] 50 mg SQ WEEKLY 12/25/17 Famotidine [Pepcid] 20 mg PO BID #60 tablet 12/26/17 Oxycodone HCl/Acetaminophen [Percocet 5-325 mg Tablet] 1 - 2 tab PO Q6H #28 tab MDD 4 12/26/17 Family Disease History - Family Disease History Family History: Unremarkable Review of Systems - Review of Systems Constitutional: denies: Chills, Fever HENT: reports: No Symptoms Neck: reports: No Symptoms Cardiovascular: reports: No Symptoms Respiratory: reports: No Symptoms Gastrointestinal: denies: Abdominal Pain Neurological: denies: Change in LOC Physical Examination Vital Signs: Vital Signs Temperature 98.5 F 12/26/17 11:04 Pulse Rate 75 12/26/17 11:04 Respiratory Rate 18 12/26/17 11:12 Blood Pressure 121/69 12/26/17 11:04 O2 Sat by Pulse Oximetry (%) 98 12/26/17 11:12 Constitutional: Yes: Calm HENT: Yes: WNL Neck: Yes: WNL Cardiovascular: Yes: Regular Rate and Rhythm Respiratory: Yes: Regular Gastrointestinal: Yes: Soft, Abdomen, Obese Neurological: Yes: Alert, Oriented Problem List - Problems (1) Morbid obesity due to excess calories Code(s): E66.01 - MORBID (SEVERE) OBESITY DUE TO EXCESS CALORIES Assessment/Plan Laparoscopic possible open gastric band placement possible internal hernia repair
[2017-12-26] MEDS ORDERED: ONDANSETRON 4 MG/2 ML VIAL IVPUSH PRN (15:04)
--- NOTE | 2017-12-26 15:04 | OP ---
Operative Note - Note: Operative Date: 12/26/17 Pre-Operative Diagnosis: Morbid obesity Operation: Laparoscopic gastric band placement. EGD Post-Operative Diagnosis: Same as Pre-op Surgeon: Attila Bruno Steamtable Attendant Railroad: Sam Berg Anesthesia: General Estimated Blood Loss (mls): 30 Drains & Tubes with Location: Large AP Band Operative Report Dictated: Yes
[2017-12-26] MEDS ORDERED: SODIUM CHLORIDE 1,000 ML IV SCH (15:15)
--- NOTE | 2017-12-26 15:15 | SURG ---
Surgery Customer Account Coordinator Note Customer Account Coordinator: Sam Berg PA-C Date of Service: 12/26/17 Diagnosis: Morbid Obseity Procedure: Laparoscopic gastric band, intra-op egd I was present for the entirety of the operative procedure. For further detail, please refer to operative report. Visit type - Case Type Case Type: Scheduled Admission - New patient This patient is new to me today: Yes Date on this admission: 12/26/17
[2017-12-26] MEDS ORDERED: ACETAMINOPHEN INJECTION 100 ML IVPB ONE (15:29)
[2017-12-26] MEDS ORDERED: LACTATED RINGERS SOLUTION 1,000 ML IV SCH (15:30)
[2017-12-26] MEDS ORDERED: ENOXAPARIN NA (PORCINE) 40 MG/0.4 ML DISP.SYRIN SQ ONE (15:30)
[2017-12-26] MEDS: ACETAMINOPHEN 1000 MG/100 ML VIAL (NON FORMULARY) IVPB PRN (15:53)
--- NOTE | 2017-12-26 15:57 | OP ---
DATE OF OPERATION: 12/26/2017 SURGEON: Attila Bruno MD CASHIER TICKET SELLING: RAFAEL Núñez PREOPERATIVE DIAGNOSES: 1. Morbid obesity. 2. Body mass index of 38.3. 3. Sleep apnea. POSTOPERATIVE DIAGNOSES: 1. Morbid obesity. 2. Body mass index of 38.3. 3. Sleep apnea. PROCEDURES: 1. Diagnostic laparoscopy. 2. Laparoscopic lysis of adhesions. 3. Laparoscopic gastric band placement. 4. Upper endoscopy/esophagogastroduodenoscopy. SPECIMEN: None. ESTIMATED BLOOD LOSS: 30 mL DRAINS: None. ANESTHESIA: GET. BAND: An AP large Lap-Band. REASON FOR PROCEDURE: This is a 32-year-old female who had undergone a Guillermo-en-Y gastric bypass in the past. She had regained weight since that time. Multiple attempts were made for further weight loss options. However, all failed. Because of this, she was consented for a laparoscopic gastric band placement, possible open. The band was to be placed over the previous bypass. In addition, there was a previous history of a bowel obstruction, and a question of an internal hernia was entertained. Because of this, she was also consented for a possible internal hernia repair, laparoscopic/possible open. The risks and benefits of the procedure were explained. These included bleeding, infection, hernia, LA, DVT, PE, injury to surrounding structures including the esophagus, the gastrojejunal anastomosis, the stomach, jejunum, liver, spleen, nerve injury, vessel injury, colon injury, as well as other intraabdominal organ injury, leak, weight regain, band failure, erosion, and band slip as some of the complications. She understood and signed informed consent. DESCRIPTION OF PROCEDURE: Patient was placed supine on the operating room table. She underwent general endotracheal intubation. The abdomen was prepped and draped in usual sterile fashion. Time-out was performed. An OG tube was placed by Anesthesia. An incision was made superior and to the left of the umbilicus. A Veress needle was inserted. Pneumoperitoneum was established. Subsequently, the Veress needle was removed, and entrance was obtained using a 5-mm optical trocar under direct visualization with laparoscope. Subsequently, a 5-mm trocar was placed in the right subcostal region and another in the left lateral subcostal region. A 15-mm trocar was placed superior and to the right of the umbilicus. Stab wound was made in the subxiphoid area and a Maria Alejandra clamp inserted. A liver retractor was inserted, and the Venu liver retractor was partially used to retract the liver and attached to the post at the bedside. The liver was only partially retracted because there were dense adhesions attached to it from her prior surgery. The patient was placed in steep Trendelenburg position. Anatomy was inspected, and very carefully, the adhesions to the liver bed were taken down with meticulous dissection, majority with sharp Metzenbaum scissor, some with the LigaSure device. The prior gastric bypass and anastomosis were identified. Once all adhesions were carefully taken down, the caudate lobe was found. The right madonna was then identified, and the area medial to it scored. Using bowel graspers, the dissection was performed posterior to both the stomach as well as the gastrojejunal anastomosis. The direction of the retractor headed to the left upper quadrant, and this plane was developed using both blunt dissection as well as electrocautery. Once this was completed and the gastrosplenic ligament dissected, the retractor was exteriorized and noted to be completely posterior to the stomach. A large Lap-Band was then chosen, prepped, and inserted into the abdominal cavity. The tubing was grasped and the band placed into position around the stomach above the level of the gastrojejunal anastomosis. The band was then secured in place and the tubing exteriorized. Copious irrigation and suction were performed and hemostasis noted. Surgicel dressing was placed at the level of the liver to aid with hemostasis as well. The bowel was then run in its entirety to look for any internal hernias from the ligament of Treitz to and beyond the jejunojejunostomy. No evidence of any internal hernias was noted, and therefore, no internal hernia repair was performed. At this point, all pneumoperitoneum was desufflated, and the liver retractor and all trocars were removed. In addition, in order to further aid with visualization during the case, the 5-mm trocar superior and to the left of the umbilicus had to be replaced with a 12-mm trocar. The trocars were then removed, and the patient was placed flat on the table. The fascia at the 15-mm trocar site was exposed, and the defect around the tube was noted to be somewhat large. Because of this, it was partially closed using a 2-0 Prolene suture. Four other 2-0 Prolene sutures were then used and inserted into the fascia and were used to secure the port to the fascia. The port was noted to be in good position. Hemostasis was noted. Next, 3-0 Vicryl sutures were used at both the 15-mm and 12-mm trocars for the deep tissue. All incisions were closed using 4-0 Biosyn. Sterile dressings were applied. The patient tolerated the procedure well. In addition, an upper endoscopy was performed to further evaluate for any leak or obstruction. The endoscope was inserted into the patient's mouth. The entirety of the esophagus, stomach, and gastrojejunal anastomosis inspected. No leak and no obstruction were noted. The endoscope was used to suction the stomach and was removed in its entirety. Patient tolerated this procedure well and transferred to recovery room in stable condition. Nathen [id number]
[2017-12-26] MEDS ORDERED: FAMOTIDINE 20 MG PREMIXED IVPB IVPB ONE (16:00)
[2017-12-26 16:15] LABS: HEMATOCRIT 34.6 % (32.4-45.2); HEMOGLOBIN 11.3 GM/dL (10.7-15.3); MCH 27.2 pg (25.7-33.7); MCHC 32.7 g/dl (32.0-36.0); MEAN CELL VOLUME 83.2 fl (80-96); MEAN PLT VOLUME 9.4 fl (7.5-11.1); PLATELET COUNT 232 K/MM3 (134-434); RBC 4.15 M/mm3 (3.60-5.2); RDW 14.2 % (11.6-15.6); WHITE BLOOD COUNT 12.5 K/mm3 (4.0-10.0)
[2017-12-26 16:23] LABS: ANION GAP 5 (8-16); BLOOD UREA NITROGEN 10 mg/dL (7-18); CALCIUM 7.9 mg/dL (8.5-10.1); CHLORIDE 107 mmol/L (98-107); CO2 28 mmol/L (21-32); CREATININE 0.8 mg/dL (0.55-1.02); GLUCOSE,RANDOM 112 mg/dL (74-106); POTASSIUM 4.2 mmol/L (3.5-5.1); SODIUM 140 mmol/L (136-145)
[2017-12-26] MEDS: morphine SULFATE 4 MG/ML VIAL IVPUSH PRN (18:47)
[2017-12-26] MEDS: FAMOTIDINE 20 MG/50 ML IVPB 20 MG/50 ML MG IVPB SCH (22:19)
[2017-12-27] MEDS: morphine SULFATE 4 MG/ML VIAL IVPUSH PRN ×2 (01:53→07:33)
[2017-12-27] MEDS: FAMOTIDINE 20 MG/50 ML IVPB 20 MG/50 ML MG IVPB SCH (10:23)
[2017-12-27] MEDS: ACETAMINOPHEN 1000 MG/100 ML VIAL (NON FORMULARY) IVPB PRN (10:53)
[2017-12-27] MEDS ORDERED: ACETAMINOPHEN 325 MG TABLET (FP) PO PRN (13:00)
[2017-12-27] MEDS ORDERED: oxyCODONE HCL 5 MG TABLET PO PRN (13:00)
[2017-12-27 14:41] VITALS: BP 120/56; PULSE 84; TEMP 97.2
--- NOTE | 2017-12-27 15:02 | PN ---
Progress Note (short form) - Note Progress Note: POD 1 Pain controlled No complaints Vital Signs Period Temp Pulse Resp BP Sys/Reyna Pulse Ox Last 24 Hr 97.2 F-98.4 F 64-91 14-20 105-120/50-72 95-99 Abd soft CBC, BMP 12/26/17 15:00 12/26/17 15:00 UGI: no leak/obstruction Clears Discharge Problem List - Problems (1) Morbid obesity due to excess calories Code(s): E66.01 - MORBID (SEVERE) OBESITY DUE TO EXCESS CALORIES
== END 2017-12-27 15:48 | disposition home or self-care (01) | DRG 621 ==
LOC: JSAMEDAYSX 16:59 → UNDOADMIN 16:59 → JSAMEDAYSX 12-26 10:16 → EDSTATUS 12-26 12:00 → J4W 12-26 17:55
PROVIDERS: ADMIT Surgery; ATTEND Surgery
PROC: 0WJP4ZZ Inspection of Gastrointestinal Tract, Percutaneous Endoscopic Approach (ICD-10-PCS; 2017-12-26)
PROC: 0DJ08ZZ Inspection of Upper Intestinal Tract, Via Natural or Artificial Opening Endoscopic (ICD-10-PCS; 2017-12-26)
PROC: 0DV64CZ Restriction of Stomach with Extraluminal Device, Percutaneous Endoscopic Approach (ICD-10-PCS; principal; 2017-12-26 12:00)
DX: E66.01 Morbid (severe) obesity due to excess calories (principal); Z68.38 Body mass index [BMI] 38.0-38.9, adult; Z98.84 Bariatric surgery status; G47.30 Sleep apnea, unspecified
CPT/HCPCS: 36415; 74241-TC-FY; 80048; 84703; 85027; 94760; J0131; J7030